=== PATIENT | female | born 1960 | race Caucasian/White ===

== ENCOUNTER → 2019-07-10 | Outpatient (CLI) | payer OTHER ==
[2019-07-11 14:38] LABS: Stool Occult Bld Immuno 1 Negative (NEGATIVE)
== END | disposition home or self-care (01) ==
LOC: LAB 17:14 → LAB SHORT 17:14
PROVIDERS: Registered Nurse
DX: Z12.11 Encounter for screening for malignant neoplasm of colon (principal)
CPT/HCPCS: G0328

== ENCOUNTER 2020-03-06 16:50 | Observation (INO) | payer OTHER ==
[2020-03-06 17:23] LABS: BASOPHILS ABSOLUTE AUTO 0.05 K/mm3 (0.00-0.23); BASOPHILS PERCENT AUTO 1 % (0-2); EOSINOPHILS ABSOLUTE AUTO 0.13 K/mm3 (0.00-0.68); EOSINOPHILS PERCENT AUTO 2 % (0-6); IMMATURE GRAN ABSOLUTE AUTO 0.02 K/mm3 (0.00-0.10); IMMATURE GRAN PERCENT AUTO 0 % (0-1); LYMPHOCYTES ABSOLUTE AUTO 3.78 K/mm3 (0.84-5.20); LYMPHOCYTES PERCENT AUTO 52 % (21-46); MONOCYTES ABSOLUTE AUTO 0.63 K/mm3 (0.16-1.47); MONOCYTES PERCENT AUTO 9 % (4-13); Mean Corpuscular HGB 31.3 pg (26.0-34.0); Mean Corpuscular HGB Conc 33.3 g/dL (31.5-36.5); Mean Corpuscular Volume 94 fL (80-100); Mean Platelet Volume 9.5 fL (9.1-12.4); NEUTROPHILS PERCENT AUTO 37 % (41-73); Platelet Count 237 K/mm3 (150-400); RDW Coefficient Variation 11.9 % (11.7-14.2); Red Blood Cell Count 4.47 M/mm3 (3.80-5.20); White Blood Cell Count 7.31 K/mm3 (4.00-11.30)
[2020-03-06 17:41] LABS: Alanine Aminotransfer (ALT/SGP 83 U/L (12-78); Albumin, Blood 4.1 g/dL (3.4-5.0); Albumin/Globulin Ratio 1.3 (0.8-1.8); Alk Phos 132 U/L (50-136); Anion Gap 7 mmol/L (6-16); Aspartate Aminotrans (AST/SGOT 36 U/L (12-37); Bilirubin, Total 0.7 mg/dL (0.1-1.0); Blood Urea Nitrogen 22 mg/dL (8-24); Bun/Creatinine Ratio 25.6 (12.0-20.0); CO2, Blood 25 mmol/L (21-32); Calcium, Blood 8.8 mg/dL (8.5-10.1); Chloride, Blood 109 mmol/L (98-108); Creatinine, Blood 0.86 mg/dL (0.40-1.00); Ethanol (Alcohol), Blood, Med <3 mg/dL; Globulin, Blood 3.2 g/dL (2.2-4.0); Glomerular Filtration Rate >60 (60-); Glucose, Blood 114 mg/dL (70-99); Potassium, Blood 3.8 mmol/L (3.5-5.5); Sodium, Blood 141 mmol/L (136-145); Total Protein, Blood 7.3 g/dL (6.4-8.2)
[2020-03-06 18:10] LABS: U Amphetamine Screen Not Detected; U Barbituate Screen Not Detected; U Benzodiazapine Screen Not Detected; U Buprenorphine Screen Not Detected; U Cannabinoids Screen Not Detected; U Cocaine Screen Not Detected; U Methadone Screen Not Detected; U Methamphetamine Screen Not Detected; U Opiates Screen Not Detected; U Oxycodone Screen Not Detected; U Phencyclidine Screen Not Detected; U Propoxyphene Screen Not Detected
[2020-03-06] MEDS ORDERED: OMEP20ER PO (19:18)
[2020-03-06] MEDS ORDERED: LOSA50 PO (19:18)
[2020-03-06] MEDS ORDERED: Simvastatin40 MG PO (19:18)
--- NOTE | 2020-03-06 22:13 | NUR ---
PT ARRIVED ON UNIT AT 2100 VIA WC. INTRODUCED TO STAFF AND ROOM. PT ABLE TO GET MOST OF THE A/O QUESTIONS RIGHT EXCEPT FOR DAY OF WEEK. PT SAID SATURDAY INSTEAD OF SATURDAY. PT ABLE TO ANSWER PRESIDENT, YEAR, NAME, , WHERE SHE IS CORRECTLY. HOWEVER PT COULD NOT RECALL WHY SHE IS IN THE HOSPITAL. LOVENOX ORDERED AND PT WAS EDUCATED ON WHY IT IS GIVEN. PT ASKED ME WHAT THE LOVENOX WAS FOR 3 TIMES WHILE I WAS GETTING IT PREPARED. PT COULD NOT RECALL WHAT SHE WAS DOING BEFORE COMING TO THE HOSPITAL. PT ALSO KEPT ON ASKING WHERE HER WAS. REMINDED PT ABOUT VISITING HOURS. PT CALLED . SHE WAS ABLE TO REMEMBER HIS PHONE NUMBER. AMBULATES GOOD. BED ALARM ON BECAUSE OF CONT NS RUNNING. PUPILS EQUAL AND REACTIVE TO LIGHT. NO SLURRED SPEECH NOTED. TONGUE MIDLINE. NO WEAKNESS NOTED. CALL LIGHT WITHIN REACH.
--- NOTE | 2020-03-07 04:43 | NUR ---
INSURANCE CODER SUMMARY PT HAS BEEN COOPERATIVE AND PLEASANT. MOSTLY SHORT TERM MEMORY LOSS FROM WHAT I HAVE NOTICIED. WHEN I ASK PT TYPICAL QUESTIONS PT WOULD SOMETIMES REPLY WITH AN ANSWER WITH SOME GIGGLES AND SMIRK/GRIN. VSS. DENIES PAIN, DIZZINIES, SOB. SLEPT WELL TONIGHT.
--- NOTE | 2020-03-07 12:39 | NUR ---
PATIENT DC'D TO HOME WITH . NO NEW RX MEDICATIONS. DC INSTRUCTIONS AND EDUCATION DISCUSSED WITH PATIENT AND COPY PROVIDED. PATIENT DENIED ANY FURTHER QUESTIONS OR CONCERNS. F/U APPT WAS MADE FOR March AT 1045.
== END 2020-03-07 12:39 | disposition home or self-care (01) ==
LOC: ER 16:50 → MEDS 20:15
PROVIDERS: Emergency Medicine; ADMIT Internal Medicine
DX: G45.4 Transient global amnesia (principal); G43.909 Migraine, unspecified, not intractable, without status migrainosus; I10 Essential (primary) hypertension; E78.5 Hyperlipidemia, unspecified; Z79.899 Other long term (current) drug therapy
CPT/HCPCS: 36415; 70450; 80053; 85025; 93005; 93010; 96360; 96361; 96372; 99285-25; A9270-GY; G0378; G0480; J1650; J7030

== ENCOUNTER → 2020-06-14 | Outpatient (CLI) | payer OTHER ==
[~2020-06-14] MED LIST: LOSA50 PO; OMEP20ER PO; Simvastatin40 MG PO
== END | disposition home or self-care (01) ==
LOC: PLD 11:23 → LAB SHORT 11:23
DX: D22.5 Melanocytic nevi of trunk (principal)
CPT/HCPCS: 88305

== ENCOUNTER 2020-07-22 07:44 | Day surgery (SDC) | payer OTHER ==
[~2020-07-22] VITALS: Ht 157.5 cm; Wt 66.0 kg
[~2020-07-22 07:44] MED LIST changes: +ASPIR 8181 M1 PO; +COENZYME Q10100 MG PO; +VITAMIN D5000 UNIT PO; +ZYRTEC10 M2 PO
== END 2020-07-22 09:35 | disposition home or self-care (01) ==
LOC: ORSCSDS 07:44
PROVIDERS: Internal Medicine Gastroenterology
PROC: 0DBL8ZX Excision of Transverse Colon, Via Natural or Artificial Opening Endoscopic, Diagnostic (ICD-10-PCS; principal; 2020-07-22 09:00)
PROC: 0DBK8ZX Excision of Ascending Colon, Via Natural or Artificial Opening Endoscopic, Diagnostic (ICD-10-PCS; principal; 2020-07-22 09:00)
PROC: 0DBP8ZX Excision of Rectum, Via Natural or Artificial Opening Endoscopic, Diagnostic (ICD-10-PCS; principal; 2020-07-22 09:00)
DX: Z12.11 Encounter for screening for malignant neoplasm of colon (principal); D12.2 Benign neoplasm of ascending colon; D12.3 Benign neoplasm of transverse colon; K62.1 Rectal polyp; K57.30 Diverticulosis of large intestine without perforation or abscess without bleeding; I10 Essential (primary) hypertension; E78.5 Hyperlipidemia, unspecified; K21.9 Gastro-esophageal reflux disease without esophagitis; Z79.82 Long term (current) use of aspirin; Z79.899 Other long term (current) drug therapy
CPT/HCPCS: 88305; J2704; J7120

== ENCOUNTER → 2021-05-30 | Outpatient (CLI) | payer OTHER | END | disposition home or self-care (01) | LOC: LAB 15:32 → LAB SHORT 15:32 | DX: D22.5 Melanocytic nevi of trunk (principal); D22.61 Melanocytic nevi of right upper limb, including shoulder | CPT/HCPCS: 88305 ==